=== PATIENT | male | born 1975 | race Two or more races ===

== ENCOUNTER 2019-07-24 00:34 | Emergency (ER) | payer BC ==
[2019-07-24 02:32] VITALS: BP 154/86; PULSE 74; TEMP 98.3; BMI 33.5
--- NOTE | 2019-07-24 02:44 | PDOC ---
History of Present Illness - General Chief Complaint: Pain Stated Complaint: LOWER BACK & GROIN PAIN - History of Present Illness Initial Comments: HPI: 43yo M with PMH of nephrolithiasis presenting with left flank pain x 2-3 days. The patient states his pain feels like when he has kidney stones in the past. Does not currently follow with a urologist. The pain started radiating towards his groin. Denies dysuria or hematuria. Reports that he has been feeling "sluggish" for the past several weeks. Has had a normal appetite. No fevers, chills, chest pain, or shortness of breath. ROS: Constitutional: no fever, no chills HEENT: no throat pain, no dysphagia Cardiovascular: no chest pain, no palpitations Respiratory: no cough, no shortness of breath Gastrointestinal: no abdominal pain, no nausea Genitourinary: no dysuria, +flank pain Musculoskeletal: no myalgia, no arthralgia Skin: no rash, no itching Neurologic: no headache, +weakness PE: General: Awake, alert, and fully oriented, in no acute distress Head: No signs of trauma Eyes: EOMI, sclera anicteric ENT: Moist mucus membranes Neck: Normal ROM, supple Lungs: Lungs clear, Normal breath sounds Cardio: Regular rhythm, S1 and S2 present Abdomen: Soft, nontender. No guarding, no rebound, no masses Extremities: Normal range of motion, Distal pulses present SKIN: Warm, Dry, normal turgor Neurologic: Cranial nerves II through XII grossly intact. Normal speech ED Course/MDM: DDX including but not limited to 07/24/19 02:43 UA negative Stable for discharge 07/24/19 06:03 Past History - Past Medical History Allergies/Adverse Reactions: Allergies Allergy/AdvReac Type Severity Reaction Status Date / Time No Known Allergies Allergy Verified 03/05/16 23:01 Home Medications: Ambulatory Orders Unobtainable 03/05/16 COPD: No Kidney Stones: Yes - Psycho Social/Smoking Cessation Hx Smoking History: Never smoked Have you smoked in the past 12 months: No Information on smoking cessation initiated: No Hx Alcohol Use: No Drug/Substance Use Hx: No Substance Use Type: None *Physical Exam - Vital Signs Last Vital Signs Temp Pulse Resp BP Pulse Ox 98.3 F 74 18 154/86 97 07/24/19 00:40 07/24/19 00:40 07/24/19 00:40 07/24/19 00:40 07/24/19 00:40 ED Treatment Course - LABORATORY CBC & Chemistry Diagram: 07/24/19 03:40 07/24/19 03:40 Discharge - Discharge Information Problems reviewed: Yes Clinical Impression/Diagnosis: Flank pain Condition: Stable Disposition: HOME - Follow up/Referral - Patient Discharge Instructions Patient Printed Discharge Instructions: DI for Flank Pain Additional Instructions: You came into the emergency department with flank pain. Lab work did not indicate acute pathology. Follow up with your primary care physician within 72 hours. Call and make an appointment to further evaluate your symptoms. Your workup is not complete until you do so. You can take [id number] tylenol or motrin for pain. Follow the instructions on the medication bottle. Immediate medical attention is required if you have: any chest pain, palpitations, shortness of breath, severe headaches, changes in vision, episodes of fainting, focal numbness or weakness, any severe abdominal pain, any black tarry stool, or any new or concerning symptoms. If you think you are having an emergency, call for emergency medical services or present to the emergency department right away. - Post Discharge Activity Work/Back to School Note: Back to Work
[2019-07-24 03:47] LABS: BASO % 0.6 % (0-2.0); HEMATOCRIT 47.9 % (35.4-49); HEMOGLOBIN 16.1 GM/dL (11.7-16.9); LYMPH % 30.5 % (8-40); MCH 31.1 pg (25.7-33.7); MCHC 33.6 g/dl (32.0-35.9); MEAN CELL VOLUME 92.4 fl (80-96); MEAN PLT VOLUME 7.8 fl (7.5-11.1); MONO % 8.1 % (3.8-10.2); NEUT % 58.8 % (42.8-82.8); PLATELET COUNT 231 K/MM3 (134-434); RBC 5.18 M/mm3 (4.00-5.60); RDW 13.5 % (11.9-15.9); WHITE BLOOD COUNT 8.3 K/mm3 (4.0-10.0)
--- NOTE | 2019-07-24 03:58 | PDOC ---
Attending Attestation - Resident Resident Name: Josi White - ED Attending Attestation I have performed the following: I have examined & evaluated the patient, The case was reviewed & discussed with the resident, I agree w/resident's findings & plan, Exceptions are as noted
[2019-07-24 04:19] LABS: ALBUMIN 3.9 g/dl (3.4-5.0); BILIRUBIN,TOTAL 0.3 mg/dL (0.2-1); BLOOD UREA NITROGEN 16.2 mg/dL (7-18); CREATININE 0.9 mg/dL (0.55-1.3); POTASSIUM 4.2 mmol/L (3.5-5.1); TOT PROT 7.1 g/dl (6.4-8.2)
[2019-07-24 05:26] LABS: URINE APPEARANCE CLEAR; URINE BILIRUBIN NEGATIVE (NEGATIVE); URINE COLOR YELLOW; URINE GLUCOSE (UA) NEGATIVE (NEGATIVE); URINE KETONE NEGATIVE (NEGATIVE); URINE LEUK ESTERASE TRACE (NEGATIVE); URINE NITRITE NEGATIVE (NEGATIVE); URINE PROTEIN NEGATIVE (NEGATIVE); URINE UROBILINOGEN 0.2 mg/dL (0.2-1.0)
== END 2019-07-24 06:36 | disposition home or self-care (01) ==
LOC: JER 00:34
DX: R10.32 Left lower quadrant pain (principal); Z87.442 Personal history of urinary calculi
CPT/HCPCS: 36415; 80053; 81003; 85025; 87086; 99282-25

== ENCOUNTER 2020-12-16 17:13 | Emergency (ER) | payer BC ==
[2020-12-16 17:20] VITALS: BP 138/88; PULSE 99; TEMP 98.2; BMI 33.5
[2020-12-16] MEDS ORDERED: KETOROLAC TROMETHAMINE 30 MG/1 ML VIAL IM ONE (17:46)
[2020-12-16] MEDS ORDERED: METHOCARBAMOL 500 MG TABLET PO ONE (17:46)
[2020-12-16] MEDS ORDERED: METHOCARBAMOL 500 MG TABLET ONE (17:48)
[2020-12-16] MEDS ORDERED: KETOROLAC TROMETHAMINE 30 MG/1 ML VIAL ONE (17:48)
== END 2020-12-16 18:33 | disposition home or self-care (01) ==
LOC: JER 17:13
PROC: 3E0233Z Introduction of Anti-inflammatory into Muscle, Percutaneous Approach (ICD-10-PCS; principal; 2020-12-16)
DX: S86.112A Strain of other muscle(s) and tendon(s) of posterior muscle group at lower leg level, left leg, initial encounter (principal); M62.831 Muscle spasm of calf
CPT/HCPCS: 99284-25

== ENCOUNTER 2022-08-19 13:54 | Emergency (ER) | payer BC ==
[2022-08-19 13:58] VITALS: BP 152/97; PULSE 75; RESP 18; TEMP 97.4; BMI 35.3
== END 2022-08-19 15:22 | disposition left against medical advice (07) ==
LOC: JER 13:54 → JERFT 13:54
DX: R09.89 Other specified symptoms and signs involving the circulatory and respiratory systems (principal)
CPT/HCPCS: 99283-25; 99284-25